=== PATIENT | female | born 1970 | race Caucasian/White ===

== ENCOUNTER 2023-07-07 21:43 | Emergency (ER) | payer BC ==
[2023-07-07] MEDS ORDERED: D5 1/2 NS w/40 mEq KCL 1,000 ML IV SCH (22:30)
[2023-07-07 22:42] LABS: Actual Bicarbonate (HCO3v) 18.9 mEq/L (22-28); Base Excess -6.8 mEq/L (-2.0 to +3.0); Calcium, Ionized (venous) 1.12 mmol/L (1.16-1.32); Chloride (VBG) 105 mmol/L (98-106); Hematocrit-VBG 45 % (36.0-47.0); Hemoglobin (Hb) 15.3 g/dL (11.7-16.0); Potassium (VBG) 3.56 mmol/L (3.70-5.30); Sodium 136 mmol/L (133-146); pH (venous) 7.304 (7.32-7.43)
[2023-07-07 22:50] LABS: ALT (SGPT) 24 U/L (8-55); AST (SGOT) 32 U/L (5-34); Albumin 3.8 g/dL (3.5-5.0); Alkaline Phosphatase 150 U/L (40-110); Anion Gap 12 mmol/L (10-20); BUN (Urea Nitrogen) 19 mg/dL (9.8-20.1); Bilirubin, Total 1.3 mg/dL (0.2-1.2); Calc. Creatinine Clearance 0 mL/min (70-130); Calcium 8.7 mg/dL (7.8-10.44); Carbon Dioxide 19 mmol/L (22-29); Chloride 106 mmol/L (98-107); Estimated GFR 65; Globulin 3.1 g/dL (2.4-3.5); Glucose 158 mg/dL (70-105); Potassium 3.5 mmol/L (3.5-5.1); Protein, Total 6.9 g/dL (6.0-8.3); Sodium 133 mmol/L (136-145)
[2023-07-07] MEDS ORDERED: Mag-Al 1200 mg/1200 mg/30 ML UDCUP ONE (23:34)
[2023-07-07] MEDS ORDERED: Acetaminophen 500 MG TAB ONE (23:34)
== END 2023-07-08 00:19 | disposition home or self-care (01) ==
LOC: ERS 21:43
DX: E86.0 Dehydration (principal); E11.10 Type 2 diabetes mellitus with ketoacidosis without coma; Z79.4 Long term (current) use of insulin
CPT/HCPCS: 36415; 36416; 82805; 99284; J3480